=== PATIENT | male | born 1995 | race Asian ===

== ENCOUNTER 2024-01-15 19:57 | Emergency (ER) | payer OTHER, SELFPAY ==
[2024-01-15 19:59] VITALS: BP 154/98
[2024-01-15 20:14] LABS: % Basophils 0.4 % (0-2); % Eosinophils 3.8 % (0-6); % Immature Granulocytes 0.3 % (0-0.5); % Lymphocytes 48.7 % (20.5-51.1); % Monocytes 5.1 % (1.7-9.3); % Neutrophils 41.7 % (42.2-75.2); Absolute Eosinophils 0.3 10^3/uL (0-0.7); Absolute Lymphocytes 3.9 10^3/uL (1.2-3.4); Absolute Monocytes 0.4 10^3/uL (0.1-0.6); Absolute Neutrophils 3.3 10^3/uL (1.4-6.5); Hematocrit 46.8 % (39.0-52.0); Hemoglobin 15.4 g/dL (13.0-18.0); Mean Corp Hgb Conc. 32.9 g/dL (33.0-37.0); Mean Corpuscular Hgb 26.8 pg (27.0-31.0); Mean Corpuscular Volume 81.5 fL (80.0-94.0); Mean Platelet Volume 10.3 fL (7.4-10.4); Nucleated Red Blood Cells % 0 % (-); Platelet Count 180 10^3/uL (130-400); Red Blood Cell Count 5.74 10^6/uL (4.70-6.10); Red Cell Dist. Width 12.6 % (11.5-14.5); White Blood Cell Count 7.9 10^3/uL (4.8-10.8)
[2024-01-15 20:39] LABS: ALT (SGPT) 49 U/L (0-50); AST (SGOT) 40 U/L (17-59); Albumin 4.8 g/dl (3.5-5.0); Alkaline Phosphatase 53 U/L (38-126); Blood Urea Nitrogen 15 mg/dl (9-20); Calcium 9.2 mg/dl (8.4-10.2); Carbon Dioxide 28 mmol/L (22-30); Chloride 104 mmol/L (98-107); Glucose 132 mg/dl (70-99); Potassium 4.4 mmol/L (3.5-5.1); Sodium 138 mmol/L (135-145); Total Bilirubin 0.9 mg/dl (0.2-1.3); Total Protein 8.4 g/dl (6.3-8.2); eGFR > 60.00
[2024-01-15 21:14] LABS: Urine Albumin Negative (Neg - Trace); Urine Bilirubin Negative (Negative); Urine Character Clear (Clear); Urine Color Yellow; Urine Glucose Negative (Negative); Urine Ketone Negative (Negative); Urine Leukocyte Negative (Negative); Urine Nitrite Negative (Negative); Urine Occult Blood Negative (Negative); Urine Urobilinogen Negative (Neg - 1+); Urine pH 6.5 (5.0-9.0)
[2024-01-15 21:42] VITALS: BMI 33.9
[2024-01-15 21:46] VITALS: BP 148/89
--- NOTE | 2024-01-15 22:05 | ED.GENMED ---
History of Present Illness
<RONI Lane - Last Filed: 01/15/24 22:32>
General
Chief Complaint: Flank Pain
Source: patient
Exam Limitations: none
Time Seen by Provider: 01/15/24 22:01
Nursing documentation reviewed up to this point in time: agreed with
Travel History
Have you had any contact with someone who has COVID-19?: No
Do you have any symptoms of coronavirus? Fever > 100 degrees, chills, cough, shortness of breath, sore throat, loss of taste or smell, muscle aches, or headache?: No
History of Present Illness
History of Present Illness:
patient is a 28 y/o male with PMH of [place] presenting for flank pain x 8 hours. Patient admits the pain starts on his right lower back and radiates down his abdomen to RLQ and testicle. Patient states that he was noticed the pain after his nap and
nothing makes it better or worse. patient admits the pain is constant and he admits the pain was worse with food and better when having bowel movement. Patient denies any previous episodes or a history of kidney stones or gallstones. Patient denies
SOB, CP, numbness or tingling, buring/frequency/urgency with urination, N/V/D/C, fever, chills or skin changes. Patient denies alcohol or smoking. Patient admits to fasting for 1 week for zoroastrianism purposes but no other change to diet.
Past History
<RONI Lane - Last Filed: 01/15/24 22:32>
Past History
ED Past Medical History: Other (Autoimmune disorder)
ED Past Surgical History: None
Social History
Personal: Single
Employment: Student
Review of Systems
<RONI Lane - Last Filed: 01/15/24 22:32>
Review of Systems
All Other Systems: Not applicable
Constitutional: Reports no symptoms
EENT: Reports no symptoms
Respiratory: Reports no symptoms
Cardiac: Reports no symptoms
ABD/GI: Reports abdominal pain (RLQ and groin radiation)
: Reports flank pain
Musculoskeletal: Reports no symptoms
Skin: Reports no symptoms
Neurological: Reports no symptoms
Endocrine: Reports no symptoms
Hematologic/Lymphatic: Reports no symptoms
Psychiatric: Reports no symptoms
Phy Exam
<RONI Lane - Last Filed: 01/15/24 22:32>
General Physical Exam
General Presentation: well appearing and no apparent distress
General Skin: warm and dry
General Habitus: normal
General Mental: alert
General Hydration: appears well hydrated
ENT Exam
ENT Exam: EOMI, pharynx normal, neck supple and normocephalic
Eye Exam
Eye Exam: PERRL, cornea clear and conjunctiva normal
Cardiovascular Exam
Cardiovascular Exam: regular rate/rhythm, no edema, no murmur and normal peripheral pulses
Pulmonary Exam
Pulmonary Exam: lungs clear, no respiratory distress, no rales, no crackles, no rhonchi, no stridor, no wheezing and no cough
Gastrointestinal Exam
Gastrointestinal Exam: tender (tenderness to RLQ )
Genitourinary Exam Male
Exam Male: no CVAT
Neurological Exam
Neurological Exam: alert, oriented x3, no motor deficits and speech normal
Musculoskeletal Exam
Musculoskeletal Exam: full ROM and no edema
Skin Exam
Skin Exam: normal color, warm/dry, no rash and no petechia
Psychiatric Exam
Psychiatric Exam: normal mood/affect
Course
<RONI Lane - Last Filed: 01/15/24 22:32>
Orders/Labs/Results
Orders:
Orders
01/15/24 20:09
CMP [Comprehensive Metabolic Panel] Urgent
Complete Blood Count/With Diff Urgent
01/15/24 21:05
Urinalysis Urgent
Date Specimen was Collected: 01/15/24
Time Specimen was Collected: 20:03
01/15/24 22:28
CT Abd/pelvis W Iv Cont Urgent
Comment:
Reason For Exam: right flank pain
Abnormal Lab Results
01/15/24
20:09
MCH 26.8 L pg
(27.0-31.0)
MCHC 32.9 L g/dL
(33.0-37.0)
Absolute Lymphs (auto) 3.9 H 10^3/uL
(1.2-3.4)
Neutrophils % 41.7 L %
(42.2-75.2)
Glucose 132 H mg/dl
(70-99)
Total Protein 8.4 H g/dl
(6.3-8.2)
01/15/24 20:09
01/15/24 20:09
Vital Signs
Initial and Last Documented VS:
Initial Vital Signs
Temp Pulse Resp BP Pulse Ox
98.5 F 78 18 154/98 100
01/15/24 19:59 01/15/24 19:59 01/15/24 19:59 01/15/24 19:59 01/15/24 19:59
Last Documented Vital Signs
Temp Pulse Resp BP Pulse Ox
98.5 F 58 18 148/89 98
01/15/24 19:59 01/15/24 21:46 01/15/24 21:46 01/15/24 21:46 01/15/24 21:46
Ezequiellt;Junior Santana, DO - Last Filed: 01/16/24 00:25>
Orders/Labs/Results
Orders:
Orders
01/15/24 20:09
CMP [Comprehensive Metabolic Panel] Urgent
Complete Blood Count/With Diff Urgent
01/15/24 21:05
Urinalysis Urgent
Date Specimen was Collected: 01/15/24
Time Specimen was Collected: 20:03
01/15/24 22:28
CT Abd/pelvis W Iv Cont Urgent
Comment:
Reason For Exam: right flank pain
Abnormal Lab Results
01/15/24
20:09
MCH 26.8 L pg
(27.0-31.0)
MCHC 32.9 L g/dL
(33.0-37.0)
Absolute Lymphs (auto) 3.9 H 10^3/uL
(1.2-3.4)
Neutrophils % 41.7 L %
(42.2-75.2)
Glucose 132 H mg/dl
(70-99)
Total Protein 8.4 H g/dl
(6.3-8.2)
01/15/24 20:09
01/15/24 20:09
Vital Signs
Initial and Last Documented VS:
Initial Vital Signs
Temp Pulse Resp BP Pulse Ox
98.5 F 78 18 154/98 100
01/15/24 19:59 01/15/24 19:59 01/15/24 19:59 01/15/24 19:59 01/15/24 19:59
Last Documented Vital Signs
Temp Pulse Resp BP Pulse Ox
98.5 F 58 18 148/89 98
01/15/24 19:59 01/15/24 21:46 01/15/24 21:46 01/15/24 21:46 01/15/24 21:46
<RONI Lane - Last Filed: 01/15/24 22:32>
MDM/Problems Addressed
Differential Diagnosis Includes:
nephrolithiasis
cholecystitis
pyelonephritis
muscle strain
MDM/Problems Addressed:
flank pain
<RONI Lane - Last Filed: 01/15/24 22:32>
*Critical Care Note
Total Time (30-74mins, 75-104mins- exclusive of procedures): Not Applicable
<Junior Santana DO - Last Filed: 01/16/24 00:25>
Update Note
Update Note:
CT ABDOMEN/PELVIS WITH CONTRAST
IMPRESSION:
1. No acute abnormality within the abdomen or pelvis.
2. No bowel obstruction. Normal gallbladder and appendix. Fecalized loops of small bowel suggestive of slow transit
Incidentals:
- No obstructive uropathy.
- No hepatic or pancreatic mass.
- No abdominal aortic aneurysm.
- No acute osseous abnormality.
- No acute abnormality within the visualized lungs.
- No acute abnormality within the visualized soft tissues.
Case finalized on Jan 15 2024 11:44PM ET
ED Attending Note
<RONI Lane - Last Filed: 01/15/24 22:32>
-
Portions of this chart may have been created with voice recognition software.� Occasional wrong word or��sound alike� substitutions may have occurred due to the inherent limitations of voice recognition software.
<Junior Santana DO - Last Filed: 01/16/24 00:25>
ED Attending Note
Patient seen and examined by attending physician: Yes
I performed the substantive portion of visit, reviewed & personally made and approve the management plan that is documented in note by myself or CRYSTAL.: Yes
ED Attending Note:
Pleasant 28-year-old male presents with right flank pain that radiates into his groin and testicle. He states that he awakened from a nap and felt this pain initially 8 hours ago. He states that nothing alleviates or exacerbates the symptoms.
Patient denies any urinary symptoms. He denies any previous trauma or exertional pain. Reports no history of kidney stones. Patient was seen in conjunction with the PA student. I have reviewed and agree with the history and treatment plan
presented. On my independent physical exam, patient is awake, alert, and oriented x3 minimal acute distress. Heart is regular rate and rhythm. Abdomen is soft and nontender. There is no CVA tenderness bilaterally. Negative Poe sign.
Negative McBurney's point tenderness.
Plan is CT abdomen pelvis with IV contrast.
Urinalysis is negative
Differential: Kidney stone, musculoskeletal, colitis,
Discharge Plan
Departure
Patient Disposition: Home (Routine Discharge)
Date of Disposition: 01/16/24
Time of Disposition: 00:19
Patient with high blood pressure during this ER visit?: Yes
Discharge Problem:
Acute flank pain
Instructions: Flank Pain (DC), BLOOD PRESSURE
Prescriptions:
New
diclofenac sodium 75 mg tablet,delayed release (DR/EC)
75 mg PO BID Qty: 10 0RF
Referrals:
[facility] [Outside]
[facility] [Outside]
NONE,* [Family Provider] -
Activity Restrictions/Additional Instructions:
Your prescriptions were sent electronically to the pharmacy that you specified.
It was a pleasure meeting you and taking part in your care. We hope for your continued healing and wellness.
Please read discharge instructions in their entirety. However, they are for general education and may not describe your exact diagnosis at discharge. Information on your ER visit and medical conditions were discussed with you along with appropriate
follow up information...
If indicated, please take your medications as instructed and indicated on discharge paperwork.
Please schedule a follow up appointment as directed. Call to schedule an appointment
Please return to the emergency department with ANY change in, persisting, or worsening of symptoms. If any of your symptoms do not improve, or persist, or become more severe within 6-12 hours, please return to the emergency department for further
care.
Please return to the emergency department if you develop a headache, neck pain/stiffness, fever greater than 100.4F, chest pain, shortness of breath, persistent nausea, vomiting, slurred speech, difficulty walking, numbness/tingling, weakness, signs
of infection or any other symptoms that are worrisome to you.
If you have any questions or concerns please do not hesitate to call the Hospital at or E-mail me directly at [email or web address]
Interventions
Interventions:
*Risk Screen - Suicide Last Done: 01/15/24 19:59
*General Assessment Last Done: 01/15/24 21:44
*Neglect/Abuse Screening Last Done: 01/15/24 19:59
*ED COVID-19 Vaccine History Last Done: 01/15/24 21:43
LZ-Lurpod-Rzizhvbihi Assessment Last Done: 01/15/24 22:35
ED-Male Genitourinary Assessment Last Done: 01/15/24 22:35
[2024-01-16] MEDS: TORADOL 30 MG IV (00:34)
[2024-01-16 00:35] VITALS: BP 159/80
== END 2024-01-16 00:39 | disposition home or self-care (01) ==
LOC: EMR 19:57
PROVIDERS: Emergency Medicine; EMERGENCY PHYSICIAN Student in an Organized Health Care Education/Training Program
DX: R10.9 Unspecified abdominal pain (principal); D89.89 Other specified disorders involving the immune mechanism, not elsewhere classified
CPT/HCPCS: 99284; 74177; 80053; 81003; 85025; Q9967